=== PATIENT | male | born 2000 | race Caucasian/White ===

== ENCOUNTER 2023-12-04 23:17 | Emergency (ER) | payer OTHER ==
[~2023-12-04] VITALS: Ht 160 cm; Wt 68.0 kg
[2023-12-05] MEDS ORDERED: NEOMY/BACITRA/POLYMYXIN B OINT UD PACKET TP ONE (00:08)
[2023-12-05] MEDS: NEOMY/BACITRA/POLYMYXIN B OINT UD PACKET TP ONE (00:22)
[2023-12-05 00:30] VITALS: BP 120/78; TEMP 97.4; O2SAT 99
== END 2023-12-05 00:31 | disposition home or self-care (01) ==
LOC: ER 23:58
DX: S61.210A Laceration without foreign body of right index finger without damage to nail, initial encounter (principal); W26.0XXA Contact with knife, initial encounter; Y93.89 Activity, other specified; Y92.89 Other specified places as the place of occurrence of the external cause; Y99.8 Other external cause status
CPT/HCPCS: A4606; A4663

== ENCOUNTER 2023-12-12 11:33 | Emergency (ER) | payer OTHER ==
[~2023-12-12] VITALS: Ht 162.6 cm; Wt 71.7 kg
[2023-12-12] MEDS ORDERED: TDAP DIPH,PERTUSS,TET VAC/PF 0.5 ML DISP.SYRIN IM ONE (11:59)
[2023-12-12] MEDS: TDAP DIPH,PERTUSS,TET VAC/PF 0.5 ML DISP.SYRIN IM ONE (12:08)
[2023-12-12 12:18] VITALS: BP 111/64; O2SAT 98
== END 2023-12-12 12:19 | disposition home or self-care (01) ==
LOC: ER 11:33
DX: S61.210D Laceration without foreign body of right index finger without damage to nail, subsequent encounter (principal); W26.0XXD Contact with knife, subsequent encounter; Z88.7 Allergy status to serum and vaccine; Z60.2 Problems related to living alone
CPT/HCPCS: 90715; A4606; A4663